=== PATIENT | male | born 1970 | race Caucasian/White ===

== ENCOUNTER 2017-04-04 16:41 | Emergency (ER) | payer OTHER, SELFPAY ==
[~2017-04-04] VITALS: Ht 188 cm; Wt 99.1 kg
[2017-04-04] MEDS ORDERED: KETOROLAC 30 MG/1 ML IM ONE (17:00)
[2017-04-04] MEDS ORDERED: METHOCARBAMOL 750 MG TABLET PO ONE (17:00)
[2017-04-04] MEDS ORDERED: KETOROLAC 30 MG/1 ML ONE (18:44)
[2017-04-04] MEDS ORDERED: METHOCARBAMOL 750 MG TABLET ONE (18:44)
[2017-04-04 19:15] VITALS: BP 144/106
== END 2017-04-04 19:17 | disposition home or self-care (01) ==
LOC: ED 19:00
DX: S39.012A Strain of muscle, fascia and tendon of lower back, initial encounter (principal); X58.XXXA Exposure to other specified factors, initial encounter; Y93.89 Activity, other specified; Y92.89 Other specified places as the place of occurrence of the external cause; Y99.8 Other external cause status
CPT/HCPCS: 72110; 96372; 99284; J1885